=== PATIENT | female | born 2005 | race Caucasian/White ===

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

== ENCOUNTER 2023-01-15 08:04 | Emergency (ER) | payer OTHER ==
[2023-01-15] MEDS ORDERED: Ibuprofen 200 MG TAB ONE (08:58)
== END 2023-01-15 09:10 | disposition home or self-care (01) ==
LOC: NAV ERS 08:04
DX: S93.402A Sprain of unspecified ligament of left ankle, initial encounter (principal); W10.8XXA Fall (on) (from) other stairs and steps, initial encounter
CPT/HCPCS: 29515

== ENCOUNTER 2023-02-06 20:50 | Emergency (ER) | payer MEDICAID, OTHER ==
[2023-02-06] MEDS ORDERED: Meclizine HCl 25 MG TAB ONE (21:23)
[2023-02-06 21:40] LABS: Bilirubin Negative (Negative); Blood, Urine Trace (Negative); Clarity Clear (Clear); Glucose, Urine (Dipstick) Negative (Negative); Ketone, Urine Trace mg/dL (Negative); Leukocyte Negative (Negative); Nitrite Negative (Negative); Protein, Urine (Dipstick) Negative (Neg-Trace)
[2023-02-06 21:42] LABS: Pregnancy Test - Urine (BHCG) Negative (Negative); Pregu Control Background? CLEAR/WHITE (CLR/WHITE); Pregu Control Bar Appear? YES (CONTROL BAR)
[2023-02-06 21:52] LABS: Bacteria/HPF Rare-Few HPF (None Seen); Mucous/LPF Few LPF (<2+); RBC/HPF 0-3 HPF (0-3); Squamous Epithelial 0-3 HPF (0-3); WBC/HPF None Seen HPF (0-3)
[2023-02-06 21:58] LABS: Amphetamine Not Detected (NotDetected); Barbiturates Screen Not Detected (NotDetected); Benzodiazepine Screen Not Detected (NotDetected); Cocaine Metabolite Screen Not Detected (NotDetected); Medtox Control Line Valid? VALID (VALID); Methadone Not Detected (NotDetected); Methamphetamine Not Detected (NotDetected); Opiate Screen Not Detected (NotDetected); Oxycodone Screen Not Detected (NotDetected); Phencyclidine (PCP) Not Detected (NotDetected); THC/Cannabinoid Screen Not Detected (NotDetected); Tricyclic Screen Not Detected (NotDetected)
== END 2023-02-06 22:15 | disposition home or self-care (01) ==
LOC: NAV ERS 20:50
DX: S40.012A Contusion of left shoulder, initial encounter (principal); W22.8XXA Striking against or struck by other objects, initial encounter
CPT/HCPCS: 36416; 80306; 81003; 81015; 81025

== ENCOUNTER 2023-02-14 21:47 | Emergency (ER) | payer OTHER, MEDICAID ==
[2023-02-14] MEDS ORDERED: Ibuprofen 200 MG TAB ONE (21:55)
== END 2023-02-14 23:00 | disposition home or self-care (01) ==
LOC: NAV ERS 21:47
DX: S93.412A Sprain of calcaneofibular ligament of left ankle, initial encounter (principal); S63.302A Traumatic rupture of unspecified ligament of left wrist, initial encounter; W01.0XXA Fall on same level from slipping, tripping and stumbling without subsequent striking against object, initial encounter

== ENCOUNTER 2023-03-04 13:03 | Emergency (ER) | payer OTHER | END 2023-03-04 14:18 | disposition home or self-care (01) | LOC: NAV ERS 13:03 | DX: K12.0 Recurrent oral aphthae (principal); S63.501A Unspecified sprain of right wrist, initial encounter; W18.30XA Fall on same level, unspecified, initial encounter | CPT/HCPCS: 87070; 87205 ==

== ENCOUNTER 2023-04-24 13:04 | Emergency (ER) | payer OTHER | END 2023-04-24 14:17 | disposition home or self-care (01) | LOC: NAV ERS 13:04 | DX: L23.9 Allergic contact dermatitis, unspecified cause (principal) | CPT/HCPCS: 99282 ==

== ENCOUNTER 2023-08-20 14:29 | Emergency (ER) | payer OTHER ==
[2023-08-20] MEDS ORDERED: Ibuprofen 200 MG TAB ONE (15:04)
== END 2023-08-20 15:25 | disposition home or self-care (01) ==
LOC: NAV ERS 14:29
DX: H60.92 Unspecified otitis externa, left ear (principal); S60.222A Contusion of left hand, initial encounter; W22.8XXA Striking against or struck by other objects, initial encounter

== ENCOUNTER → 2023-09-26 | Emergency (ER) | payer OTHER | LOC: EEVIPCON 00:51 → NAV ERS 00:51 | DX: Z04.41 Encounter for examination and observation following alleged adult rape (principal) | CPT/HCPCS: 70450 ==

== ENCOUNTER 2023-10-13 16:21 | Emergency (ER) | payer OTHER, SELFPAY ==
[2023-10-13] MEDS ORDERED: Boostrix 0.5 ML (Tdap) VIAL (>/=7 yrs of age) ONE (17:01)
[2023-10-13] MEDS ORDERED: Ibuprofen 800 MG TAB ONE (17:01)
== END 2023-10-13 17:26 | disposition home or self-care (01) ==
LOC: NAV ERS 16:21
DX: S81.031A Puncture wound without foreign body, right knee, initial encounter (principal); Z23 Encounter for immunization; W45.0XXA Nail entering through skin, initial encounter; Y92.72 Chicken coop as the place of occurrence of the external cause
CPT/HCPCS: 90471; 90715

== ENCOUNTER 2024-09-27 17:26 | Emergency (ER) | payer OTHER ==
[2024-09-27] MEDS ORDERED: Acetaminophen 500 MG TAB ONE (17:49)
[2024-09-27] MEDS ORDERED: Ketorolac Tromethamine 30 MG (1 mL) VIAL ONE (17:49)
== END 2024-09-27 18:38 | disposition home or self-care (01) ==
LOC: NAV ERS 17:26
DX: M25.572 Pain in left ankle and joints of left foot (principal); W01.0XXA Fall on same level from slipping, tripping and stumbling without subsequent striking against object, initial encounter
CPT/HCPCS: 96372; 99283; J1885